=== PATIENT | male | born 1960 | race Caucasian/White ===

== ENCOUNTER 2017-02-23 13:44 | Emergency (ER) | payer OTHER ==
[2017-02-23 17:04] LABS: BASOPHIL % 0.4 % (0-2); PLATELET COUNT 317 x10^3mcL (130-400); RED CELL DISTRIBUTION WIDTH 14.2 % (11.5-14.5)
[2017-02-23 17:07] LABS: CALCIUM 8.9 mg/dL (8.5-10.1); CARBON DIOXIDE 28.4 mmol/L (21-32); CHLORIDE SERUM 104 mmol/L (98-107); CREATININE SERUM 0.7 mg/dL (0.7-1.3); GFR1 > 60 mL/min; GLUCOSE SERUM 96 mg/dL (74-106); POTASSIUM SERUM 3.5 mmol/L (3.5-5.1); SODIUM SERUM 142 mmol/L (136-145)
[2017-02-23 17:20] LABS: ALKALINE PHOSPHATASE 64 U/L (46-116); ALT/SGPT 31 U/L (16-63); AST/SGOT 23 U/L (15-37); BILIRUBIN TOTAL 1.01 mg/dL (0.20-1.00); T4(THYROXINE) 9.2 ug/dL (4.7-13.3); TOTAL PROTEIN, SERUM 7.6 g/dL (6.4-8.2)
[2017-02-23 17:44] LABS: AMPHETAMINE QUAL UR POSITIVE (NEG <=1000)
[2017-02-23 18:32] VITALS: BP 129/81
== END 2017-02-23 18:35 | disposition home or self-care (01) ==
LOC: ED 13:44
PROVIDERS: Emergency Medicine
DX: F15.10 Other stimulant abuse, uncomplicated (principal); F12.10 Cannabis abuse, uncomplicated; G47.00 Insomnia, unspecified
CPT/HCPCS: 36415; 83880; G0480; Q0092